=== PATIENT | female | born 1970 | race Caucasian/White ===

== ENCOUNTER → 2018-03-06 08:50 | Outpatient (CLI) | payer OTHER, SELFPAY ==
[2018-03-06 09:37] LABS: Add Manual Diff / Slide Review NO; Basophils Percent Auto 0.6 % (0-2); Eosinophils Percent Auto 3.6 % (2-4); Hematocrit 41.3 % (36-46); Hemoglobin 14.4 g/dL (12.0-16.0); Lymphocytes Percent Auto 30.2 % (25-40); Mean Corpuscular HGB Conc 34.9 % (30-36); Mean Corpuscular Hemoglobin 33.9 PG (26-34); Mean Corpuscular Volume 96.9 fL (80-100); Monocytes Percent Auto 9.3 % (3-14); Neutrophils Absolute Auto 3000 /uL (3000-5900); Neutrophils Percent Auto 56.3 % (50-75); Platelet Count 198 X10^3/uL (150-400); Red Blood Cell Count 4.26 X10^6/uL (4.0-5.2); Red Cell Distribution Width 12.1 % (11.6-14.8); White Blood Cell Count 5.3 X10^3/uL (4.5-11.0)
[2018-03-06 10:07] LABS: Alanine Aminotransferase 358 IU/L (9-52); Albumin 4.6 g/dL (3.5-5.0); Albumin Globulin Ratio 1.5 (1.0-2.8); Alkaline Phosphatase 83 U/L (38-126); Aspartate Aminotransferase 343 IU/L (14-36); Calcium 9.6 mg/dL (8.4-10.2); Cholesterol 259 mg/dL (140-199); Estimated Glomerular Filt Rate > 60.0 mL/min (>60); Glucose 89 mg/dL (70-100); HDL Cholesterol 76 mg/dL (40-60); HEMOLYSIS < 15 (0-50); LDL Cholesterol Calculated 167 mg/dL (<100); Potassium 4.6 mmol/L (3.4-5.1); Sodium 141 mmol/L (137-145); Total Protein 7.6 g/dL (6.3-8.2); Triglycerides 79 mg/dL (35-150)
[2018-03-06 10:17] LABS: Free T3, Triiodothyronine Free 3.75 pg/mL (2.77-5.27); Free T4, Direct Thyroxine 1.12 ng/dL (0.78-2.19)
[2018-03-06 10:31] LABS: Thyroid Stimulating Hormone 1.24 uIU/mL (0.47-4.68)
[2018-03-10 13:57] LABS: Thyroid Peroxidase Antibodies 1 IU/mL (< 9)
== END ==
PROVIDERS: PCP Internal Medicine
DX: Z13.228 Encounter for screening for other metabolic disorders (principal); Z13.220 Encounter for screening for lipoid disorders; Z13.0 Encounter for screening for diseases of the blood and blood-forming organs and certain disorders involving the immune mechanism; Z13.29 Encounter for screening for other suspected endocrine disorder; E03.9 Hypothyroidism, unspecified
CPT/HCPCS: 36415; 80053; 80061; 84439; 84443; 84481; 85025; 86376

== ENCOUNTER → 2019-01-28 14:54 | Outpatient (CLI) | payer OTHER, SELFPAY ==
[2019-01-28 15:51] LABS: Influenza A and B by PCR Rapid Negative (Negative)
== END ==
PROVIDERS: PCP Internal Medicine; Visit Provider Physician Assistant
DX: R68.89 Other general symptoms and signs (principal)
CPT/HCPCS: 87400

== ENCOUNTER → 2019-03-11 08:46 | Outpatient (CLI) | payer OTHER, SELFPAY ==
[2019-03-11 10:08] LABS: Add Manual Diff / Slide Review NO; Basophils Absolute Auto 0 /uL (0-100); Basophils Percent Auto 0.3 % (0-2); Eosinophils Absolute Auto 400 /uL (0-450); Eosinophils Percent Auto 6.3 % (2-4); Hematocrit 43.3 % (36-46); Hemoglobin 14.8 g/dL (12.0-16.0); Lymphocytes Absolute Auto 2400 /uL (1100-4500); Lymphocytes Percent Auto 37.1 % (25-40); Mean Corpuscular HGB Conc 34.1 % (30-36); Mean Corpuscular Hemoglobin 32.8 PG (26-34); Mean Corpuscular Volume 96.4 fL (80-100); Monocytes Absolute Auto 400 /uL (0-900); Monocytes Percent Auto 6.5 % (3-14); Neutrophils Absolute Auto 3300 /uL (1500-7000); Neutrophils Percent Auto 49.8 % (50-75); Platelet Count 259 X10^3/uL (150-400); Red Cell Distribution Width 12.3 % (11.6-14.8); White Blood Cell Count 6.6 X10^3/uL (4.5-11.0)
[2019-03-11 10:43] LABS: Alanine Aminotransferase 47 IU/L (9-52); Albumin 4.3 g/dL (3.5-5.0); Albumin Globulin Ratio 1.4 (1.0-2.8); Alkaline Phosphatase 82 U/L (38-126); Aspartate Aminotransferase 49 IU/L (14-36); Bilirubin Total 0.7 mg/dL (0.2-1.3); Blood Urea Nitrogen 16 mg/dL (7-17); Calcium 9.7 mg/dL (8.4-10.2); Carbon Dioxide 30 mmol/L (22-32); Chloride 102 mmol/L (98-107); Cholesterol 322 mg/dL (140-199); Estimated Glomerular Filt Rate > 60.0 mL/min (>60); Glucose 90 mg/dL (70-100); HDL Cholesterol 58 mg/dL (40-60); HEMOLYSIS < 15 (0-50); LDL Cholesterol Calculated 227 mg/dL (<100); Potassium 4.7 mmol/L (3.4-5.1); Sodium 139 mmol/L (137-145); Total Protein 7.3 g/dL (6.3-8.2); Triglycerides 187 mg/dL (35-150)
[2019-03-11 10:58] LABS: Free T3, Triiodothyronine Free 3.56 pg/mL (2.77-5.27); Free T4, Direct Thyroxine 0.83 ng/dL (0.78-2.19)
[2019-03-11 11:12] LABS: Thyroid Stimulating Hormone 3.19 uIU/mL (0.47-4.68)
[2019-03-13 15:27] LABS: Thyroid Peroxidase Antibodies 1 IU/mL (< 9)
== END ==
PROVIDERS: PCP Family Medicine
DX: E03.9 Hypothyroidism, unspecified (principal); Z13.228 Encounter for screening for other metabolic disorders; Z13.220 Encounter for screening for lipoid disorders; Z13.0 Encounter for screening for diseases of the blood and blood-forming organs and certain disorders involving the immune mechanism
CPT/HCPCS: 36415; 80053; 80061; 84439; 84443; 84481; 85025; 86376

== ENCOUNTER → 2019-05-24 10:57 | Outpatient (CLI) | payer OTHER, SELFPAY ==
--- NOTE | 2019-05-24 10:58 | DI.MG.S_ITS ---
BILATERAL DIGITAL SCREENING MAMMOGRAM 3D/2D WITH CAD: 05/24/2019 CLINICAL: Routine screening. Comparison is made to exams dated: 05/12/2018 mammogram and 05/09/2017 mammogram - [facility]. There are scattered fibroglandular elements in both breasts. Current study was also evaluated with a Computer Aided Detection (CAD) system. There are benign post operative findings in both breasts. There is a mole marker on the right breast. No significant masses, calcifications, or other findings are seen in either breast. There has been no significant interval change. IMPRESSION: There is no mammographic evidence of malignancy. A 1 year screening mammogram is recommended. This exam was interpreted at Station ID: [id number]. NOTE: For mammograms, a report in lay terms will be sent to the patient. Approximately 15% of breast malignancies will not be visualized mammographically. In the management of a palpable breast mass, a negative mammogram must not discourage biopsy of a clinically suspicious lesion. Electronically Signed By: Chuck deal/polly:05/26/2019 17:10:51 copy to: Lynn Mitchell letter sent: Normal Exam ACR BI-RADS Category 2: Benign Finding(s) 3342F
== END ==
PROVIDERS: PCP Family Medicine; Visit Provider Nurse Practitioner Family
DX: Z12.31 Encounter for screening mammogram for malignant neoplasm of breast (principal)
CPT/HCPCS: 77063; 77067

== ENCOUNTER → 2019-09-22 10:29 | Outpatient (CLI) | payer OTHER, SELFPAY ==
[2019-09-22 11:41] LABS: Alanine Aminotransferase 119 IU/L (<35); Albumin 4.5 g/dL (3.5-5.0); Albumin Globulin Ratio 1.7 (1.0-2.8); Alkaline Phosphatase 104 U/L (38-126); Aspartate Aminotransferase 169 IU/L (14-36); Bilirubin Total 0.9 mg/dL (0.2-1.3); Blood Urea Nitrogen 16 mg/dL (7-17); Calcium 9.6 mg/dL (8.4-10.2); Carbon Dioxide 28 mmol/L (22-32); Chloride 103 mmol/L (98-107); Cholesterol 201 mg/dL (140-199); Estimated Glomerular Filt Rate > 60.0 mL/min (>60); Globulin 2.7 g/dL (1.7-4.1); Glucose 93 mg/dL (70-100); HDL Cholesterol 69 mg/dL (40-60); HEMOLYSIS < 15 (0-50); LDL Cholesterol Calculated 112 mg/dL (<100); Potassium 4.8 mmol/L (3.4-5.1); Sodium 139 mmol/L (137-145); Total Protein 7.2 g/dL (6.3-8.2); Triglycerides 102 mg/dL (35-150)
[2019-09-22 12:09] LABS: Thyroid Stimulating Hormone 2.68 uIU/mL (0.47-4.68)
== END ==
PROVIDERS: PCP Nurse Practitioner Family; Visit Provider Nurse Practitioner Family
DX: E03.9 Hypothyroidism, unspecified (principal); R74.8 Abnormal levels of other serum enzymes; E78.2 Mixed hyperlipidemia
CPT/HCPCS: 36415; 80053; 80061; 84443

== ENCOUNTER → 2019-12-01 12:10 | Outpatient (CLI) | payer OTHER, SELFPAY ==
[2019-12-01 13:29] LABS: Alanine Aminotransferase 127 IU/L (<35); Albumin 4.8 g/dL (3.5-5.0); Albumin Globulin Ratio 1.7 (1.0-2.8); Alkaline Phosphatase 116 U/L (38-126); Aspartate Aminotransferase 120 IU/L (14-36); Bilirubin Unconjugated 0.9 mg/dL (0.0-1.1); Globulin 2.8 g/dL (1.7-4.1); HEMOLYSIS < 15 (0-50); Total Protein 7.6 g/dL (6.3-8.2)
== END ==
PROVIDERS: PCP Nurse Practitioner Family; Referring Provider Nurse Practitioner Family; Visit Provider Nurse Practitioner Family
DX: R74.8 Abnormal levels of other serum enzymes (principal)
CPT/HCPCS: 36415; 80076

== ENCOUNTER → 2020-04-28 10:48 | Outpatient (CLI) | payer OTHER, SELFPAY ==
[2020-04-28 12:30] LABS: Hematocrit 40.7 % (36-46); Mean Corpuscular HGB Conc 34.4 % (30-36); Mean Corpuscular Hemoglobin 32.9 PG (26-34); Mean Corpuscular Volume 95.7 fL (80-100); Platelet Count 220 X10^3/uL (150-400); Red Blood Cell Count 4.25 X10^6/uL (4.0-5.2); Red Cell Distribution Width 12.3 % (11.6-14.8); White Blood Cell Count 4.9 X10^3/uL (4.5-11.0)
[2020-04-28 12:36] LABS: Creatinine Urine Random 172.8 mg/dL
[2020-04-28 12:39] LABS: Microalbumi Creatinin Ratio Ur 4.6 ug/mg CR (<30); Microalbumin Urine Random 0.8 mg/dL (0-1.6)
[2020-04-28 12:42] LABS: Alanine Aminotransferase 165 IU/L (<35); Albumin 4.4 g/dL (3.5-5.0); Albumin Globulin Ratio 1.7 (1.0-2.8); Alkaline Phosphatase 87 U/L (38-126); Aspartate Aminotransferase 142 IU/L (14-36); BUN Creatinine Ratio 15.9 (6-22); Bilirubin Total 0.8 mg/dL (0.2-1.3); Blood Urea Nitrogen 14 mg/dL (7-17); Calcium 10.1 mg/dL (8.4-10.2); Carbon Dioxide 30 mmol/L (22-32); Chloride 101 mmol/L (98-107); Cholesterol 273 mg/dL (140-199); Estimated Glomerular Filt Rate > 60.0 mL/min (>60); Globulin 2.6 g/dL (1.7-4.1); Glucose 86 mg/dL (70-100); HDL Cholesterol 68 mg/dL (40-60); HEMOLYSIS < 15 (0-50); LDL Cholesterol Calculated 180 mg/dL (<100); Potassium 5.1 mmol/L (3.4-5.1); Sodium 137 mmol/L (137-145); Triglycerides 126 mg/dL (35-150)
[2020-04-28 14:49] LABS: Free T4, Direct Thyroxine 1.05 ng/dL (0.78-2.19)
[2020-04-28 15:03] LABS: Thyroid Stimulating Hormone 1.72 uIU/mL (0.47-4.68)
== END ==
PROVIDERS: PCP Nurse Practitioner Family; Referring Provider Nurse Practitioner Family; Visit Provider Nurse Practitioner Family
DX: E03.9 Hypothyroidism, unspecified (principal); I10 Essential (primary) hypertension; K76.0 Fatty (change of) liver, not elsewhere classified; E78.2 Mixed hyperlipidemia
CPT/HCPCS: 36415; 80053; 80061; 82043; 82570; 84439; 84443; 85027

== ENCOUNTER → 2020-11-04 09:24 | Outpatient (CLI) | payer OTHER, SELFPAY ==
[2020-11-04 10:23] LABS: Hematocrit 41.9 % (36-46); Hemoglobin 14.5 g/dL (12.0-16.0); Mean Corpuscular HGB Conc 34.7 % (30-36); Mean Corpuscular Hemoglobin 34.1 PG (26-34); Mean Corpuscular Volume 98.1 fL (80-100); Platelet Count 207 X10^3/uL (150-400); Red Blood Cell Count 4.27 X10^6/uL (4.0-5.2); Red Cell Distribution Width 12.3 % (11.6-14.8); White Blood Cell Count 6.2 X10^3/uL (4.5-11.0)
[2020-11-04 11:18] LABS: Alanine Aminotransferase 381 IU/L (<35); Albumin 4.3 g/dL (3.5-5.0); Albumin Globulin Ratio 1.5 (1.0-2.8); Alkaline Phosphatase 90 U/L (38-126); Aspartate Aminotransferase 413 IU/L (14-36); BUN Creatinine Ratio 18.4 (6-22); Bilirubin Total 0.5 mg/dL (0.2-1.3); Blood Urea Nitrogen 14 mg/dL (7-17); Calcium 9.4 mg/dL (8.4-10.2); Carbon Dioxide 27 mmol/L (22-32); Chloride 104 mmol/L (98-107); Cholesterol 246 mg/dL (140-199); Estimated Glomerular Filt Rate > 60.0 mL/min (>60); Globulin 2.9 g/dL (1.7-4.1); Glucose 93 mg/dL (70-100); HDL Cholesterol 66 mg/dL (40-60); HEMOLYSIS < 15 (0-50); LDL Cholesterol Calculated 160 mg/dL (<100); Potassium 4.4 mmol/L (3.4-5.1); Sodium 138 mmol/L (137-145); Total Protein 7.2 g/dL (6.3-8.2); Triglycerides 102 mg/dL (35-150)
[2020-11-04 11:31] LABS: Free T4, Direct Thyroxine 1.23 ng/dL (0.78-2.19)
[2020-11-04 11:45] LABS: Thyroid Stimulating Hormone 1.63 uIU/mL (0.47-4.68)
== END ==
PROVIDERS: PCP Nurse Practitioner Family; Referring Provider Nurse Practitioner Family; Visit Provider Nurse Practitioner Family
DX: Z00.00 Encounter for general adult medical examination without abnormal findings (principal); E03.9 Hypothyroidism, unspecified; E78.2 Mixed hyperlipidemia; F10.10 Alcohol abuse, uncomplicated; I10 Essential (primary) hypertension; K76.0 Fatty (change of) liver, not elsewhere classified; Z13.6 Encounter for screening for cardiovascular disorders
CPT/HCPCS: 36415; 80053; 80061; 84439; 84443; 85027

== ENCOUNTER → 2020-11-17 11:48 | Outpatient (CLI) | payer OTHER, SELFPAY ==
[2020-11-17 13:13] LABS: INR 1.1 (0.9-1.3)
[2020-11-19 23:39] LABS: HBsAg Screen Negative (Negative); Hepatitis A Antibody IgM Negative (Negative); Hepatitis B Core Antibody IgM Negative (Negative); Hepatitis C Antibody <0.1 s/co ratio (0.0-0.9)
[2020-11-20 14:36] LABS: Vitamin B1 140.5 nmol/L (66.5-200.0)
[2020-11-21 00:06] LABS: ALT (SGPT) 418 IU/L (0-40); Alpha 2-Macroglobulins, QN 184 mg/dL (110-276); Apolipoprotein A-1 173 mg/dL (116-209); Bilirubin,Total 0.4 mg/dL (0.0-1.2); Fibrosis Score 0.15 (0.00-0.21); GGT 185 IU/L (0-60); Haptoglobin 219 mg/dL (42-296); Necroinflammat Act Grade A3-Severe activity (.); Necroinflammat Act Score 0.92 (0.00-0.17)
== END ==
PROVIDERS: PCP Nurse Practitioner Family; Referring Provider Nurse Practitioner Family; Visit Provider Nurse Practitioner Family
DX: K70.9 Alcoholic liver disease, unspecified (principal); F10.10 Alcohol abuse, uncomplicated; R74.8 Abnormal levels of other serum enzymes
CPT/HCPCS: 36415; 80074; 81596; 84425; 85610

== ENCOUNTER → 2020-11-23 16:43 | Outpatient (CLI) | payer OTHER, SELFPAY ==
[2020-11-23 19:11] LABS: Hematocrit 41.6 % (36-46); Hemoglobin 14.4 g/dL (12.0-16.0); Mean Corpuscular HGB Conc 34.6 % (30-36); Mean Corpuscular Volume 98.2 fL (80-100); Platelet Count 228 X10^3/uL (150-400); Red Blood Cell Count 4.24 X10^6/uL (4.0-5.2); Red Cell Distribution Width 11.9 % (11.6-14.8); White Blood Cell Count 8.6 X10^3/uL (4.5-11.0)
[2020-11-23 19:28] LABS: INR 1.2 (0.9-1.3); Prothrombin Time 13.8 SECONDS (10.1-12.7)
[2020-11-23 19:37] LABS: Alanine Aminotransferase 363 IU/L (<35); Albumin 4.4 g/dL (3.5-5.0); Albumin Globulin Ratio 1.4 (1.0-2.8); Alkaline Phosphatase 89 U/L (38-126); Aspartate Aminotransferase 276 IU/L (14-36); BUN Creatinine Ratio 20.7 (6-22); Bilirubin Total 0.6 mg/dL (0.2-1.3); Bilirubin Unconjugated 0.5 mg/dL (0.0-1.1); Blood Urea Nitrogen 18 mg/dL (7-17); Calcium 9.9 mg/dL (8.4-10.2); Carbon Dioxide 31 mmol/L (22-32); Chloride 102 mmol/L (98-107); Estimated Glomerular Filt Rate > 60.0 mL/min (>60); Globulin 3.2 g/dL (1.7-4.1); Glucose 78 mg/dL (70-100); HEMOLYSIS < 15 (0-50); Potassium 4.1 mmol/L (3.4-5.1); Sodium 138 mmol/L (137-145); Total Protein 7.6 g/dL (6.3-8.2)
== END ==
PROVIDERS: PCP Nurse Practitioner Family; Referring Provider Nurse Practitioner Family; Visit Provider Nurse Practitioner Family
DX: K70.9 Alcoholic liver disease, unspecified (principal); R74.8 Abnormal levels of other serum enzymes
CPT/HCPCS: 36415; 80053; 80076; 85027; 85610

== ENCOUNTER → 2021-01-15 08:30 | Outpatient (CLI) | payer OTHER, SELFPAY ==
[2021-01-15 09:51] LABS: Hematocrit 41.4 % (36-46); Hemoglobin 14.2 g/dL (12.0-16.0); Mean Corpuscular HGB Conc 34.3 % (30-36); Mean Corpuscular Volume 96.3 fL (80-100); Platelet Count 195 X10^3/uL (150-400); Red Cell Distribution Width 11.9 % (11.6-14.8); White Blood Cell Count 4.8 X10^3/uL (4.5-11.0)
[2021-01-15 09:57] LABS: Alanine Aminotransferase 225 IU/L (<35); Albumin 4.3 g/dL (3.5-5.0); Albumin Globulin Ratio 1.5 (1.0-2.8); Alkaline Phosphatase 78 U/L (38-126); Aspartate Aminotransferase 153 IU/L (14-36); BUN Creatinine Ratio 14.5 (6-22); Bilirubin Total 0.6 mg/dL (0.2-1.3); Blood Urea Nitrogen 11 mg/dL (7-17); Calcium 9.6 mg/dL (8.4-10.2); Carbon Dioxide 28 mmol/L (22-32); Chloride 104 mmol/L (98-107); Estimated Glomerular Filt Rate > 60.0 mL/min (>60); Globulin 2.9 g/dL (1.7-4.1); Glucose 93 mg/dL (70-100); HEMOLYSIS < 15 (0-50); Sodium 139 mmol/L (137-145); Total Protein 7.2 g/dL (6.3-8.2)
== END ==
PROVIDERS: PCP Nurse Practitioner Family; Referring Provider Nurse Practitioner Family; Visit Provider Nurse Practitioner Family
DX: K70.9 Alcoholic liver disease, unspecified (principal); R74.8 Abnormal levels of other serum enzymes
CPT/HCPCS: 36415; 80053; 85027

== ENCOUNTER → 2021-02-02 12:15 | Outpatient (CLI) | payer OTHER, SELFPAY ==
--- NOTE | 2021-02-02 12:18 | DI.RAD.S_ITS ---
PROCEDURE: XR LUMBAR SPINE 2-3V INDICATIONS: chronic lumbar pain TECHNIQUE: 3 views of the lumbar spine were acquired. COMPARISON: None. FINDINGS: Bones: 5 [id number] vertebrae are present. There is mild diffuse leftward curvature of the lower lumbar spine. Multilevel disc space narrowing and endplate osteophyte formation. Facet hypertrophy throughout the mid and lower lumbar spine. No vertebral body compression fractures. No suspicious bony lesions. Soft tissues: Overlying bowel gas pattern is normal. No suspicious soft tissue calcifications. IMPRESSION: Multilevel degenerative disc and facet disease. No acute fracture. No osseous lesion. If symptoms and/or clinical suspicion for pathology persist, further assessment with repeat, or advanced imaging (e.g., CT, MRI, or bone scan) may be helpful for further assessment. Dictated by: Pari De La Vega M.D. on 02/02/2021 at 16:53 Approved by: Pari De La Vega M.D. on 02/02/2021 at 16:53
[2021-02-02 13:04] LABS: Hematocrit 41.5 % (36-46); Hemoglobin 14.3 g/dL (12.0-16.0); Mean Corpuscular HGB Conc 34.5 % (30-36); Mean Corpuscular Hemoglobin 32.9 PG (26-34); Mean Corpuscular Volume 95.4 fL (80-100); Platelet Count 226 X10^3/uL (150-400); Red Blood Cell Count 4.34 X10^6/uL (4.0-5.2); Red Cell Distribution Width 11.7 % (11.6-14.8); White Blood Cell Count 6.3 X10^3/uL (4.5-11.0)
[2021-02-02 13:23] LABS: Alanine Aminotransferase 105 IU/L (<35); Albumin 4.4 g/dL (3.5-5.0); Albumin Globulin Ratio 1.4 (1.0-2.8); Alkaline Phosphatase 80 U/L (38-126); Aspartate Aminotransferase 81 IU/L (14-36); BUN Creatinine Ratio 12.3 (6-22); Bilirubin Total 0.6 mg/dL (0.2-1.3); Blood Urea Nitrogen 10 mg/dL (7-17); Calcium 9.9 mg/dL (8.4-10.2); Carbon Dioxide 30 mmol/L (22-32); Chloride 103 mmol/L (98-107); Estimated Glomerular Filt Rate > 60.0 mL/min (>60); Globulin 3.1 g/dL (1.7-4.1); Glucose 73 mg/dL (70-100); HEMOLYSIS < 15 (0-50); Potassium 4.2 mmol/L (3.4-5.1); Sodium 141 mmol/L (137-145); Total Protein 7.5 g/dL (6.3-8.2)
== END ==
PROVIDERS: PCP Nurse Practitioner Family; Referring Provider Nurse Practitioner Family; Visit Provider Nurse Practitioner Family
DX: M54.5 Low back pain (principal); M51.36 Other intervertebral disc degeneration, lumbar region; K70.9 Alcoholic liver disease, unspecified; R74.8 Abnormal levels of other serum enzymes; G89.29 Other chronic pain
CPT/HCPCS: 36415; 72100; 80053; 85027

== ENCOUNTER → 2021-02-09 17:57 | Outpatient (CLI) | payer OTHER, SELFPAY ==
--- NOTE | 2021-02-09 17:58 | DI.MRI.S_ITS ---
PROCEDURE: MR LUMBAR SPINE WO CON INDICATIONS: Lumbar facet arthropathy, scoliosis TECHNIQUE: Noncontrast sagittal T1 spin echo and T2 fast echo, sagittal STIR, axial T1 and T2 fast spin echo through the lumbar spine. In cases with scoliosis, additional coronal T2 fast spin echo may be performed. COMPARISON: None. FINDINGS: Image quality: Excellent. Alignment and Curvature: There is normal bony alignment. Mild convex left lumbar spine scoliosis. Bone Marrow: Marrow is of normal overall signal. No acute vertebral body compression fractures. Spinal Cord: Conus medullaris terminates at the L1 level. Visualized cord demonstrates normal signal and size. Paraspinous Soft Tissues: No paravertebral masses. T12-L1: Normal appearance. L1-L2: Normal appearance. L2-L3: Loss of disc signal. Mild bilateral facet hypertrophy. No central stenosis. No neural foraminal narrowing. No neural compression. L3-L4: Loss of disc signal. Mild diffuse disc bulge. Mild bilateral facet hypertrophy. No central stenosis. No neural foraminal narrowing. No neural compression. L4-L5: Loss of disc signal. Mild, diffuse disc bulge. Mild bilateral facet hypertrophy. Mild narrowing of the central canal. No neural foraminal narrowing. No neural compression. L5-S1: Loss of disc signal. Mild, diffuse disc bulge. Mild bilateral facet hypertrophy. No central stenosis. Moderate to severe bilateral neural foraminal narrowing with slight compression of the exiting L5 nerve roots. IMPRESSION: 1. Multilevel degenerative disc disease. 2. Multilevel facet arthropathy. 3. No severe central canal narrowing. 4. Moderate to severe bilateral L5-S1 neural foraminal narrowing with slight compression of the exiting bilateral L5 nerve roots. Please correlate with clinical data. 5. Mild convex left scoliosis. Dictated by: Rina Mercado MD, PhD on 02/12/2021 at 8:28 Approved by: Rina Mercado MD, PhD on 02/12/2021 at 8:32
== END ==
PROVIDERS: PCP Nurse Practitioner Family; Referring Provider Physical Medicine & Rehabilitation; Visit Provider Physical Medicine & Rehabilitation
DX: M47.816 Spondylosis without myelopathy or radiculopathy, lumbar region (principal); M51.36 Other intervertebral disc degeneration, lumbar region; M48.061 Spinal stenosis, lumbar region without neurogenic claudication; M48.07 Spinal stenosis, lumbosacral region; M41.86 Other forms of scoliosis, lumbar region
CPT/HCPCS: 72148

== ENCOUNTER → 2021-03-06 07:01 | Outpatient (CLI) | payer OTHER, SELFPAY ==
[2021-03-06 12:43] LABS: COVID19 -Nasal RAPID Negative (Negative)
== END ==
PROVIDERS: PCP Nurse Practitioner Family; Visit Provider Physical Medicine & Rehabilitation
DX: Z20.822 Contact with and (suspected) exposure to COVID-19 (principal)
CPT/HCPCS: 87635; C9803

== ENCOUNTER 2021-03-08 13:43 | Outpatient (CLI) | payer OTHER, SELFPAY ==
[2021-03-08] VITALS (8 sets, daily range): BP systolic 103–133; BP diastolic 64–77; PULSE 49–69; RESP 14–20; TEMP 36.4; O2SAT 95–100
--- NOTE | 2021-03-08 13:46 | DI.RAD.S_ITS ---
PROCEDURE: PAIN L/SI FACET INJ/BLK 1STL INDICATIONS: Right L4-5 L5-S1 facet joint injection COMPARISON: None. FINDINGS: Fluoroscopic spot filming was performed to verify placement of spinal needles at the L4-L5, L5-S1 level(s), as labeled on the films. Appropriate location(s) of the needle tip(s) was confirmed by injection of iodinated contrast. Dictated by: Roman Sexton M.D. on 03/08/2021 at 15:29 Approved by: Roman Sexton M.D. on 03/08/2021 at 15:30
[2021-03-08] MEDS: fentaNYL 100 MCG/2 ML INJ 50 MCG IV (14:30)
[2021-03-08] MEDS: MIDAZOLAM 5 MG/5 ML VIAL IV (14:30)
[2021-03-08] MEDS: IOPAMIDOL 15 ML VIAL 3 ML INJ (14:31)
[2021-03-08] MEDS: BETAMETHASONE 30 MG/5 ML MDV 12 MG INJ (14:32)
[2021-03-08] MEDS: BUPIVACAINE 0.5% (PF) VIAL 5 ML INJ (14:32)
--- NOTE | 2021-03-08 14:43 | P.PCN_ITS ---
Date/Time/Diagnoses Date of procedure: 03/08/21 Time of procedure: 14:43 Pre-procedure diagnosis: 1. FACET ARTHROPATHY, 2. AXIAL LBP, 3. MULTILEVEL DDD Post-procedure diagnosis: same Procedure Notes Procedure: 1. FLUOROSCOPICALLY GUIDED CONTRAST CONTROLLED FACET JOINT INJECTIONS RIGHT L4/5, L5/S1 Indications: Jose is referred by EDIL Fritz for treatment of Axial LBP Physician: Kale Barnes Total Fluoroscopy time (seconds): 9 Total sedation minutes: 9 Complications: none Procedure in detail & Post-procedure care: FINDINGS Multilevel Facet Arthropathy with Clinically significant axial LBP DESCRIPTION OF PROCEDURE Fluoroscopically guided, contrast-controlled right L4/5, L5/S1 facet joint injections. Following review of allergy and review of potential side effects and complications, including, but not necessarily limited to, infection, allergic reaction, local tissue breakdown, stroke, temporary or permanent nerve injury, paralysis, and possible , the patient indicated that the patient understood and agreed to proceed. An informed consent document was signed by the patient, witnessed by a nurse, and placed in the patient's chart. Additionally, other treatment options including medications, modalities, and physical therapy were reviewed with the patient. After review of previous anaesthesic history and IV conscious sedation the patient was deemed safe to proceed with today?s procedure with IV conscious sedation as ASA class II designation. Safety time-out was performed to confirm patient ID, procedure to be performed and site of procedure. IV sedation was accomplished with a combination of 2mg of Versed and 50mcg of Fentanyl was administered by the RN after DO order, titrated to patient comfort during the course of the procedure while the patient remained responsive to all verbal commands. In the prone position, following sterile prep and drape of the lumbar region, the posterior aspect of the right L4/5, L5/S1 facet joints were identified fluoroscopically. The skin was anesthetized via a 25-gauge 1.5-inch needle with 1% lidocaine solution into the corresponding facet joints. At this point, a 22- gauge 3.5-inch spinal needle was atraumatically introduced and advanced under fluoroscopic guidance into the corresponding facet joints. Following negative aspiration, injections of approximately 0.2-cc of Isovue 200 confirmed interarticular placement without vascular uptake. Radiological data, including multiple fluoroscopic views of the lumbosacral spine, reveal a spinal needle at the right L4/5, L5/S1 facet joints. Subsequent views show flow of contrast material both superiorly and inferiorly within the joint space without vascular or intrathecal uptake. At this point, a total of 0.5cc including a mixture of 0.25cc Marcaine and 0.25cc betamethasone was injected without complication into each of the corresponding facet joints. The procedure tolerated the procedure well without signs or symptoms of co mplications prior to transfer to the recovery area continued monitoring without incident. The patient was then transferred to the recovery area where they were observed for an appropriate period of time after the injection. The patient reported a VAS score of 7 prior to the procedure and a post-procedure VAS of 0. POST OP INSTRUCTIONS The patient was provided a Pain Log to continue to record their response to the target-specific procedure prior to follow-up visit with their referring physician. Additionally, specific post-injection care instructions and a contact number to our office were provided if concerns arise regarding possible complications associated with the procedure are suspected.
== END 2021-03-08 15:01 | disposition home or self-care (01) ==
LOC: RAD 13:46
PROVIDERS: PCP Nurse Practitioner Family; Referring Provider Physical Medicine & Rehabilitation; Visit Provider Physical Medicine & Rehabilitation
DX: M47.816 Spondylosis without myelopathy or radiculopathy, lumbar region (principal); M47.817 Spondylosis without myelopathy or radiculopathy, lumbosacral region; M51.36 Other intervertebral disc degeneration, lumbar region; M51.37 Other intervertebral disc degeneration, lumbosacral region; M54.5 Low back pain
CPT/HCPCS: 64493; 64494; J0702; J2250; J3010

== ENCOUNTER → 2021-04-27 08:57 | Outpatient (CLI) | payer OTHER, SELFPAY ==
[2021-04-27 09:43] LABS: Hematocrit 42.5 % (36-46); Hemoglobin 14.6 g/dL (12.0-16.0); Mean Corpuscular HGB Conc 34.4 % (30-36); Mean Corpuscular Hemoglobin 32.5 PG (26-34); Mean Corpuscular Volume 94.4 fL (80-100); Platelet Count 213 X10^3/uL (150-400); Red Cell Distribution Width 12.6 % (11.6-14.8); White Blood Cell Count 5.4 X10^3/uL (4.5-11.0)
[2021-04-27 09:55] LABS: Alanine Aminotransferase 167 IU/L (<35); Albumin 4.3 g/dL (3.5-5.0); Albumin Globulin Ratio 1.4 (1.0-2.8); Alkaline Phosphatase 85 U/L (38-126); Aspartate Aminotransferase 130 IU/L (14-36); BUN Creatinine Ratio 17.5 (6-22); Bilirubin Total 0.8 mg/dL (0.2-1.3); Blood Urea Nitrogen 14 mg/dL (7-17); Calcium 9.8 mg/dL (8.4-10.2); Carbon Dioxide 31 mmol/L (22-32); Chloride 102 mmol/L (98-107); Estimated Glomerular Filt Rate > 60.0 mL/min (>60); Glucose 103 mg/dL (70-100); HEMOLYSIS < 15 (0-50); Potassium 4.8 mmol/L (3.4-5.1); Sodium 138 mmol/L (137-145); Total Protein 7.3 g/dL (6.3-8.2)
== END ==
PROVIDERS: PCP Nurse Practitioner Family; Referring Provider Nurse Practitioner Family; Visit Provider Nurse Practitioner Family
DX: K70.9 Alcoholic liver disease, unspecified (principal)
CPT/HCPCS: 36415; 80053; 85027

== ENCOUNTER → 2021-06-05 08:25 | Outpatient (CLI) | payer OTHER, SELFPAY ==
[2021-06-05 12:39] LABS: COVID19 -Nasal RAPID Negative (Negative)
== END ==
PROVIDERS: PCP Nurse Practitioner Family; Visit Provider Physical Medicine & Rehabilitation
DX: Z20.822 Contact with and (suspected) exposure to COVID-19 (principal)
CPT/HCPCS: 87635; C9803

== ENCOUNTER 2021-06-07 13:26 | Outpatient (CLI) | payer OTHER, SELFPAY ==
[2021-06-07] VITALS (8 sets, daily range): BP systolic 104–139; BP diastolic 57–79; PULSE 62–77; RESP 12–97; TEMP 36.7; O2SAT 96–100
--- NOTE | 2021-06-07 13:26 | DI.RAD.S_ITS ---
PROCEDURE: PAIN L/SI FACET INJ/BLK 1STL INDICATIONS: Right L4, L5 and S1 MBB COMPARISON: [facility], , PAIN L/SI FACET INJ/BLK 1STL, 03/08/2021, 14:31. FINDINGS: Fluoroscopic spot filming was performed to verify placement of spinal needles at the L4, L5, and S1 level(s), as labeled on the films. Appropriate location(s) of the needle tip(s) was confirmed by injection of iodinated contrast. IMPRESSION: Intraprocedural examination within normal limits. Dictated by: Bolivar Perera M.D. on 06/07/2021 at 14:12 Approved by: Bolivar Perera M.D. on 06/07/2021 at 14:12
[2021-06-07] MEDS: MIDAZOLAM 5 MG/5 ML VIAL IV (14:18)
[2021-06-07] MEDS: fentaNYL 100 MCG/2 ML INJ 50 MCG IV (14:18)
[2021-06-07] MEDS: IOPAMIDOL 15 ML VIAL 3 ML INJ (14:24)
[2021-06-07] MEDS: BUPIVACAINE 0.5% (PF) VIAL 5 ML INJ (14:24)
--- NOTE | 2021-06-07 14:31 | PM.PROC.IR.1 ---
Date/Time/Diagnoses Date of procedure: 06/07/21 Time of procedure: 14:31 Pre-procedure diagnosis: 1. FACET ARTHROPATHY Post-procedure diagnosis: same Procedure Notes Procedure: 1. Right L4, L5 and S1 MB BLOCKS Indications: Jose is referred by EDIL Fritz for treatment of Right Axial LBP. Physician: Kale Barnes Total Fluoroscopy time (seconds): 5 Total sedation minutes: 9 Complications: none Procedure in detail & Post-procedure care: DESCRIPTION OF PROCEDURE Fluoroscopically guided, contrast-controlled right L4, L5 and S1 medial branch blocks with 0.5cc of 0.5% Marcaine. Following review of allergy and review of potential side effects and complications, including, but not necessarily limited to, infection, allergic reaction, local tissue breakdown, nerve injury, paralysis, stroke and possible , the patient indicated that the patient understood and agreed to proceed. An informed consent document was signed by the patient, witnessed by a nurse, and placed in the patient's chart. After review of previous anaesthesic history and IV conscious sedation the patient was deemed safe to proceed with today?s procedure with IV conscious sedation as ASA class II designation. Safety time-out was performed to confirm patient ID, procedure to be performed and site of procedure. IV sedation was accomplished with a combination of 2mg of Versed and 50mcg of Fentanyl was administered by the RN after DO order, titrated to patient comfort during the course of the procedure while the patient remained responsive to all verbal commands In the prone position, following sterile prep and drape of the lumbar region, the right L4, L5 and S1 anatomical location of the medial branch of the dorsal ramus was identified fluoroscopically. Subsequently an anesthetic skin wheal using 1% lidocaine solution was initiated at each of the anatomical spots. Subsequently then a 22-gauge 3.5-inch spinal needle was atraumatically introduced and advanced under fluoroscopic guidance at each of the corresponding sites at the right L4, L5 and S1 MB. After negative aspiration, 0.2 cc of Isovue 200 was injected, confirming placement without vascular or intrathecal uptake. Subsequently then 0.5 cc of 0.5% Marcaine solution was injected at each of the corresponding sites at the right L4, L5 and S1 medial branch locations. The patient tolerated the procedure well without signs or symptoms of complications. The procedure tolerated the procedure well without signs or symptoms of complications prior to transfer to the recovery area continued monitoring without incident. Post-procedure, the patient was monitored initiating provocative activities to measure the amount of relief from block of the facetogenic pain. The patient reported a VAS of 7 prior to the procedure and a post-procedure VAS of 1. It has been a pleasure to assist in the diagnostic and therapeutic care of your patient. POST OP INSTRUCTIONS The patient was provided with a Pain Log to complete over the next several hours and subsequent days prior to the patient's follow up with the ordering physician. If the patient has personal protection specialist relief to the solution applied, then they may be a candidate for medial branch rhizotomy. The patient is aware, was provided, once again, with a Pain Log and will follow up with the referring physician for review and clinical correlation.
== END 2021-06-07 15:00 | disposition home or self-care (01) ==
LOC: RAD 13:26
PROVIDERS: PCP Nurse Practitioner Family; Referring Provider Physical Medicine & Rehabilitation; Visit Provider Physical Medicine & Rehabilitation
DX: M47.816 Spondylosis without myelopathy or radiculopathy, lumbar region (principal); M47.817 Spondylosis without myelopathy or radiculopathy, lumbosacral region; M54.5 Low back pain
CPT/HCPCS: 64493; 64494; 64495; J2250; J3010

== ENCOUNTER → 2021-06-09 09:34 | Outpatient (CLI) | payer OTHER, SELFPAY ==
--- NOTE | 2021-06-09 09:35 | DI.MG.S_ITS ---
BILATERAL DIGITAL SCREENING MAMMOGRAM 3D/2D WITH CAD: 06/09/2021 CLINICAL: Routine screening. Comparison is made to exams dated: 05/25/2020 mammogram - [facility], 05/24/2019 mammogram [facility], and 05/12/2018 mammogram - [facility]. There are scattered fibroglandular elements in both breasts. Current study was also evaluated with a Computer Aided Detection (CAD) system. There are benign post operative findings in both breasts. There is a mole marker on the right breast. No significant masses, calcifications, or other findings are seen in either breast. There has been no significant interval change. IMPRESSION: BENIGN There is no mammographic evidence of malignancy. A 1 year screening mammogram is recommended. This exam was interpreted at Station ID: [id number]. NOTE: For mammograms, a report in lay terms will be sent to the patient. Approximately 15% of breast malignancies will not be visualized mammographically. In the management of a palpable breast mass, a negative mammogram must not discourage biopsy of a clinically suspicious lesion. Electronically Signed By: Abhi evangelista/polly:06/10/2021 21:45:55 letter sent: Normal Exam ACR BI-RADS Category 2: Benign Finding(s) 3342F
== END ==
PROVIDERS: PCP Nurse Practitioner Family; Referring Provider Nurse Practitioner Family; Visit Provider Nurse Practitioner Family
DX: Z12.31 Encounter for screening mammogram for malignant neoplasm of breast (principal)
CPT/HCPCS: 77063; 77067

== ENCOUNTER → 2021-07-31 15:06 | Outpatient (CLI) | payer OTHER, SELFPAY ==
[2021-07-31 16:16] LABS: Hematocrit 43.4 % (36-46); Hemoglobin 15.1 g/dL (12.0-16.0); Mean Corpuscular HGB Conc 34.7 % (30-36); Mean Corpuscular Volume 98.2 fL (80-100); Platelet Count 228 X10^3/uL (150-400); Red Blood Cell Count 4.42 X10^6/uL (4.0-5.2); Red Cell Distribution Width 12.4 % (11.6-14.8)
[2021-07-31 16:47] LABS: Alanine Aminotransferase 215 IU/L (<35); Albumin 4.5 g/dL (3.5-5.0); Albumin Globulin Ratio 1.5 (1.0-2.8); Alkaline Phosphatase 83 U/L (38-126); Aspartate Aminotransferase 127 IU/L (14-36); BUN Creatinine Ratio 21.9 (6-22); Bilirubin Total 0.5 mg/dL (0.2-1.3); Blood Urea Nitrogen 16 mg/dL (7-17); Calcium 10.3 mg/dL (8.4-10.2); Carbon Dioxide 33 mmol/L (22-32); Chloride 100 mmol/L (98-107); Estimated Glomerular Filt Rate > 60.0 mL/min (>60); Globulin 3.1 g/dL (1.7-4.1); Glucose 104 mg/dL (70-100); HEMOLYSIS < 15 (0-50); Potassium 4.3 mmol/L (3.4-5.1); Sodium 140 mmol/L (137-145); Total Protein 7.6 g/dL (6.3-8.2)
[2021-07-31 17:07] LABS: Free T4, Direct Thyroxine 1.08 ng/dL (0.78-2.19)
[2021-07-31 17:21] LABS: Thyroid Stimulating Hormone 3.02 uIU/mL (0.47-4.68)
== END ==
PROVIDERS: PCP Nurse Practitioner Family; Referring Provider Nurse Practitioner Family; Visit Provider Nurse Practitioner Family
DX: Z00.00 Encounter for general adult medical examination without abnormal findings (principal); E03.9 Hypothyroidism, unspecified; F10.10 Alcohol abuse, uncomplicated; K70.9 Alcoholic liver disease, unspecified; K76.0 Fatty (change of) liver, not elsewhere classified; R74.8 Abnormal levels of other serum enzymes
CPT/HCPCS: 36415; 80053; 84439; 84443; 85027

== ENCOUNTER → 2021-08-02 11:30 | Outpatient (CLI) | payer OTHER, SELFPAY ==
--- NOTE | 2021-08-02 11:31 | DI.RAD.S_ITS ---
PROCEDURE: XR HIP W PEL IF DONE LT 2V INDICATIONS: hip pain TECHNIQUE: AP pelvis with lateral view(s) of the left hip(s). COMPARISON: None. FINDINGS: Bones: No fractures or dislocations. Pelvic ring appears intact. No suspicious bony lesions. Moderate left hip osteoarthritic degenerative changes. Soft tissues: The visualized bowel gas pattern is normal. No suspicious soft tissue calcifications. IMPRESSION: Moderate left hip osteoarthritis. Dictated by: Rina Mercado MD, PhD on 08/02/2021 at 16:47 Approved by: Rina Mercado MD, PhD on 08/02/2021 at 16:48
== END ==
PROVIDERS: PCP Nurse Practitioner Family; Referring Provider Nurse Practitioner Family; Visit Provider Nurse Practitioner Family
DX: M25.552 Pain in left hip (principal); M16.12 Unilateral primary osteoarthritis, left hip
CPT/HCPCS: 73502

== ENCOUNTER → 2021-11-02 11:50 | Outpatient (CLI) | payer OTHER, SELFPAY ==
[2021-11-02 12:37] LABS: Hematocrit 41.2 % (36-46); Hemoglobin 14.3 g/dL (12.0-16.0); Mean Corpuscular HGB Conc 34.8 % (30-36); Mean Corpuscular Hemoglobin 34.1 PG (26-34); Mean Corpuscular Volume 97.9 fL (80-100); Platelet Count 243 X10^3/uL (150-400); Red Blood Cell Count 4.21 X10^6/uL (4.0-5.2); Red Cell Distribution Width 12.4 % (11.6-14.8); White Blood Cell Count 6.6 X10^3/uL (4.5-11.0)
[2021-11-02 13:30] LABS: Alanine Aminotransferase 57 IU/L (<35); Albumin 4.3 g/dL (3.5-5.0); Albumin Globulin Ratio 1.8 (1.0-2.8); Alkaline Phosphatase 63 U/L (38-126); Aspartate Aminotransferase 48 IU/L (14-36); BUN Creatinine Ratio 12.8 (6-22); Bilirubin Total 0.7 mg/dL (0.2-1.3); Blood Urea Nitrogen 10 mg/dL (7-17); Calcium 9.8 mg/dL (8.4-10.2); Carbon Dioxide 29 mmol/L (22-32); Chloride 104 mmol/L (98-107); Cholesterol 202 mg/dL (140-199); Estimated Glomerular Filt Rate > 60.0 mL/min (>60); Globulin 2.4 g/dL (1.7-4.1); Glucose 90 mg/dL (70-100); HDL Cholesterol 71 mg/dL (40-60); HEMOLYSIS < 15 (0-50); LDL Cholesterol Calculated 116 mg/dL (<100); Potassium 4.5 mmol/L (3.4-5.1); Sodium 137 mmol/L (137-145); Total Protein 6.7 g/dL (6.3-8.2); Triglycerides 73 mg/dL (35-150)
== END ==
PROVIDERS: PCP Nurse Practitioner Family; Referring Provider Nurse Practitioner Family; Visit Provider Nurse Practitioner Family
DX: E03.9 Hypothyroidism, unspecified (principal); E78.2 Mixed hyperlipidemia; K70.9 Alcoholic liver disease, unspecified; Z13.6 Encounter for screening for cardiovascular disorders; Z00.00 Encounter for general adult medical examination without abnormal findings
CPT/HCPCS: 36415; 80053; 80061; 85027

== ENCOUNTER → 2021-11-14 10:33 | Outpatient (CLI) | payer OTHER, SELFPAY ==
[2021-11-14 14:02] LABS: COVID19 -Nasal RAPID POSITIVE (Negative)
== END ==
PROVIDERS: PCP Nurse Practitioner Family; Referring Provider Physician Assistant; Visit Provider Physician Assistant
DX: U07.1 COVID-19 (principal)
CPT/HCPCS: 87635

== ENCOUNTER → 2022-01-09 09:25 | Outpatient (CLI) | payer OTHER, SELFPAY ==
--- NOTE | 2022-01-09 09:27 | DI.RAD.S_ITS ---
PROCEDURE: XR CHEST 2V INDICATIONS: weight loss, former smoker TECHNIQUE: 2 views of the chest were acquired. [facility], [facility], CHEST 2VW, 02/05/2011, 9:56. FINDINGS: Surgical changes and devices: None. Lungs and pleura: Lungs are clear. No pleural effusions or pneumothorax. Mediastinum: Mediastinal contours are normal. Heart size is normal. Bones and chest wall: No suspicious bony abnormalities. Soft tissues appear unremarkable. IMPRESSION: No acute pulmonary process. Dictated by: Ericka Nam M.D. on 01/09/2022 at 15:07 Approved by: Ericka Nam M.D. on 01/09/2022 at 15:08
[2022-01-09 10:10] LABS: Hematocrit 41.5 % (36-46); Hemoglobin 14.6 g/dL (12.0-16.0); Mean Corpuscular HGB Conc 35.2 % (30-36); Mean Corpuscular Hemoglobin 33.8 PG (26-34); Mean Corpuscular Volume 95.8 fL (80-100); Platelet Count 254 X10^3/uL (150-400); Red Blood Cell Count 4.33 X10^6/uL (4.0-5.2); White Blood Cell Count 6.9 X10^3/uL (4.5-11.0)
[2022-01-09 10:26] LABS: Alanine Aminotransferase 30 IU/L (<35); Albumin 4.5 g/dL (3.5-5.0); Albumin Globulin Ratio 1.5 (1.0-2.8); Alkaline Phosphatase 68 U/L (38-126); Aspartate Aminotransferase 36 IU/L (14-36); BUN Creatinine Ratio 20.6 (6-22); Bilirubin Total 0.7 mg/dL (0.2-1.3); Blood Urea Nitrogen 14 mg/dL (7-17); Calcium 9.8 mg/dL (8.4-10.2); Carbon Dioxide 30 mmol/L (22-32); Chloride 104 mmol/L (98-107); Estimated Glomerular Filt Rate > 60.0 mL/min (>60); Glucose 93 mg/dL (70-100); HEMOLYSIS < 15 (0-50); Potassium 4.9 mmol/L (3.4-5.1); Sodium 138 mmol/L (137-145); Total Protein 7.5 g/dL (6.3-8.2)
[2022-01-09 10:43] LABS: Free T4, Direct Thyroxine 1.13 ng/dL (0.78-2.19)
[2022-01-09 10:57] LABS: Thyroid Stimulating Hormone 1.18 uIU/mL (0.47-4.68)
== END ==
PROVIDERS: PCP Nurse Practitioner Family; Referring Provider Nurse Practitioner Family; Visit Provider Nurse Practitioner Family
DX: R63.4 Abnormal weight loss (principal); Z87.891 Personal history of nicotine dependence
CPT/HCPCS: 36415; 71046; 80053; 84439; 84443; 85027

== ENCOUNTER → 2022-03-06 09:09 | Outpatient (CLI) | payer OTHER, SELFPAY ==
[2022-03-06 12:28] LABS: COVID19 -Nasal RAPID Negative (Negative)
== END ==
PROVIDERS: PCP Nurse Practitioner Family; Visit Provider Surgery
DX: Z01.812 Encounter for preprocedural laboratory examination (principal); Z20.822 Contact with and (suspected) exposure to COVID-19
CPT/HCPCS: 87635; C9803

== ENCOUNTER 2022-03-07 08:29 | Day surgery (SDC) | payer OTHER, SELFPAY ==
--- NOTE | 2022-03-07 | PATH_ITS ---
[facility] Accession Number: [id number] . 01 Material submitted: . rectum - RECTAL POLYP . 01 Diagnosis: Rectum, Polyp, Biopsy: Hyperplastic polyp. [facility] 03/12/2022 1336 Local . 01 Electronically signed: . Bhakti Ortiz MD, Pathologist NPI- [id number] . 01 Gross description: . RECTAL POLYP: Received in formalin is 1 fragment(s) of brennan, soft tissue measuring 0.3 x 0.2 x 0.2 cm submitted entirely in 1 cassette(s) /CPE 03/08/2022 0532 Local . 01 Pathologist provided ICD-10: K62.1 . 01 CPT . 821086 Specimen Comment: A courtesy copy of this report has been sent to [phone] Performed at: 01 [facility] [address] [place] [id number] MD Braeden Rutherford MD Phone: [phone]
[2022-03-07 08:39] VITALS: BP 114/77; PULSE 59; RESP 16; TEMP 36.4; O2SAT 98; BMI 29.0
--- NOTE | 2022-03-07 09:19 | PM.HP.1 ---
History of Present Illness History of Present Illness Date Patient Seen: 03/07/22 Time Patient Seen: 09:20 Chief complaint: SCREENING COLONOSCOPY Narrative: 52-year-old woman who is here for colon cancer screening. She has never had a colonoscopy before Patient History Medical History (Updated 03/07/22 @ 09:20 by Tony Rivas MD) Alcoholic liver disease Chronic back pain (2000) Elevated liver enzymes Encounter for routine gynecological examination (08/02/21) Encounter for wellness examination in adult (08/02/21) ETOH abuse Facet arthropathy, lumbar Fatty liver Hip pain, left Hot flashes due to menopause Hypertension Hyperthyroidism Malignant melanoma (05/2021) Nodule of skin of left foot (~11/2021) Scoliosis Unintentional weight loss (07/2021) Vaginal atrophy Surgical History Anesthesia History of breast augmentation (~01/08/12) History of breast augmentation (~01/07/17) Family & Social History Family History Father Accident Social History: household members significant other Tobacco & Substance use: Smoking Status Current some day smoker alcohol intake current alcohol intake frequency 0-2 drinks per day Substance Use Type does not use Meds Home Medications and Allergies Home Medications Medication Instructions Recorded Confirmed Type levothyroxine 25 mcg tablet 50 mcg PO QDAY #0 03/05/17 03/07/22 History (Synthroid) fish oil 1 tab PO DAILY 07/18/21 03/07/22 History vitamin e 1 tab PO DAILY 07/18/21 03/07/22 History cholecalciferol (vitamin D3) 25 100 mcg PO DAILY cap 08/02/21 03/07/22 History mcg (1,000 unit) capsule ezetimibe 10 mg tablet See Rx Instructions .ROUTE 01/07/22 03/07/22 Rx .COMPLEX #30 tab losartan 25 mg tablet See Rx Instructions .ROUTE 01/14/22 03/07/22 Rx .COMPLEX #90 tab sodium sul 1.479 gram-potas ch See Rx Instructions PO PER PKG DIR 02/21/22 Rx 0.188 gram-magnes sul 0.225 gram #24 tab tablet (Sutab) Allergies Allergy/AdvReac Type Severity Reaction Status Date / Time No Known Drug Allergies Allergy Verified 08/02/21 11:10 Exam Vital Signs (past 8 hours): - 03/07/22 08:39 Temperature 97.5 F L Pulse Rate 59 L Respiratory Rate 16 Blood Pressure 114/77 Pulse Oximetry 98 Oxygen Delivery Method Room Air Const General: comfortable Resp Effort & Inspection: normal respiratory effort GI Palpation: soft Assessment & Plan Assessment and plan (1) Colon cancer screening: Status: Acute Plan We reviewed the risks and benefits of colonoscopy for colon cancer screening and she would like to proceed. COVID-19 COVID-19 status: Negative Result date/Date tested (Pos, Neg/Pending): 03/06/22 Time Spent With Patient Critical Care time: I spent a total of [] minutes of critical care time on this patient's care today; this time is exclusive of procedural time.
[2022-03-07] MEDS: MIDAZOLAM 5 MG/5 ML VIAL IV (09:38)
[2022-03-07] MEDS: fentaNYL 250 MCG/5 ML INJ IV (09:38)
[2022-03-07 09:58] VITALS: BP 104/72; PULSE 52; RESP 14; TEMP 36.4; O2SAT 98
--- NOTE | 2022-03-07 10:02 | PM.OP.COLON ---
Operative Date/Time/Diagnoses Date of procedure: 03/07/22 Time of procedure: 10:02 Pre-op diagnosis: Colon cancer screening Post-op diagnosis: same Procedure & Clinicians Study performed: Colonoscopy Same procedure as scheduled: Yes Surgeon: Tony Rivas Procedure Notes Procedure in detail: Surgeon: Tony Rivas MD Procedure: The patient was brought to the endoscopy suite, placed in left lateral decubitus position. The patient was connected to monitoring devices. A time-out was performed. Sedation was administered. Once the patient was adequately sedated, a digital rectal exam was performed and was normal. The scope was then inserted and advanced to the cecum where the appendiceal orifice was identified and photographed. The scope was then slowly withdrawn over greater than 6 minutes. Mucosa was thoroughly inspected. There were no lesions noted. The scope was retroflexed in the rectum. There was a small 5 mm polyp just above the dentate line which was removed with cold Jumbo forceps. The scope was straightened and removed. The patient was awakened and brought to recovery. Versed: 5 mg Fentanyl: 150 mcg EBL: 5 mL Findings: Small polyp just above the dentate line Scope withdrawal time: 11 Sedation minutes: 25 Post-procedure Recommendations: Will call with biopsy results Disposition: PACU
[2022-03-07 10:03] VITALS: BP 107/70; PULSE 58; RESP 11; O2SAT 97
[2022-03-07 10:09] VITALS: BP 122/80; PULSE 59; RESP 14; O2SAT 97
[2022-03-07] MEDS: LACTATED RINGERS 1,000 ML 150 ML IV (10:13)
== END 2022-03-07 10:15 | disposition home or self-care (01) ==
PROVIDERS: Referring Provider Surgery; Visit Provider Surgery
PROC: 0DJD8ZZ Inspection of Lower Intestinal Tract, Via Natural or Artificial Opening Endoscopic (ICD-10-PCS; CPT 45378; principal; 2022-03-07 09:30)
DX: Z12.11 Encounter for screening for malignant neoplasm of colon (principal); F17.210 Nicotine dependence, cigarettes, uncomplicated; K62.1 Rectal polyp
CPT/HCPCS: 45380; 99152; 99153; J2250; J3010

== ENCOUNTER → 2022-04-09 15:28 | Outpatient (CLI) | payer OTHER, SELFPAY | PROVIDERS: Visit Provider Student in an Organized Health Care Education/Training Program | DX: N39.0 Urinary tract infection, site not specified (principal) | CPT/HCPCS: 87086 ==

== ENCOUNTER → 2022-05-08 12:24 | Outpatient (CLI) | payer OTHER, SELFPAY ==
[2022-05-08 13:53] LABS: Alanine Aminotransferase 47 IU/L (<35); Albumin 4.5 g/dL (3.5-5.0); Albumin Globulin Ratio 1.9 (1.0-2.8); Alkaline Phosphatase 77 U/L (38-126); Aspartate Aminotransferase 52 IU/L (14-36); Bilirubin Total 0.7 mg/dL (0.2-1.3); Bilirubin Unconjugated 0.7 mg/dL (0.0-1.1); Globulin 2.4 g/dL (1.7-4.1); HEMOLYSIS < 15 (0-50); Total Protein 6.9 g/dL (6.3-8.2)
== END ==
PROVIDERS: PCP Registered Nurse Diabetes Educator; Referring Provider Registered Nurse Diabetes Educator; Visit Provider Registered Nurse Diabetes Educator
DX: R74.8 Abnormal levels of other serum enzymes (principal)
CPT/HCPCS: 36415; 80076

== ENCOUNTER → 2022-06-22 12:44 | Outpatient (CLI) | payer OTHER, SELFPAY ==
--- NOTE | 2022-06-22 | DI.MG.S_ITS ---
BILATERAL DIGITAL SCREENING MAMMOGRAM 3D/2D WITH CAD: 06/22/2022 CLINICAL: Routine screening. Comparison is made to exams dated: 06/09/2021 mammogram - [facility], 05/25/2020 mammogram - [facility], and 05/24/2019 mammogram - [facility]. There are scattered areas of fibroglandular density in both breasts (category b / 25%-50% glandular tissue). Current study was also evaluated with a Computer Aided Detection (CAD) system. There are benign post operative findings in both breasts. There is a mole marker on the right breast. No significant masses, calcifications, or other findings are seen in either breast. There has been no significant interval change. IMPRESSION: BENIGN There is no mammographic evidence of malignancy. A 1 year screening mammogram is recommended. Based on the Tyrer Cuzick model (a risk assessment model) the patient's lifetime risk is 8.2% and her 10 year risk is 1.9%. According to the ACR, ACS, and NCCN guidelines, an annual breast MRI exam along with mammogram is recommended if the patient's lifetime risk is 20% or greater. This exam was interpreted at Station ID: [id number]. NOTE: For mammograms, a report in lay terms will be sent to the patient. Approximately 15% of breast malignancies will not be visualized mammographically. In the management of a palpable breast mass, a negative mammogram must not discourage biopsy of a clinically suspicious lesion. Electronically Signed By: Abhi evangelista/polly:06/25/2022 07:50:02 letter sent: Normal Exam ACR BI-RADS Category 2: Benign Finding(s) 3342F
== END ==
PROVIDERS: PCP Registered Nurse Diabetes Educator; Referring Provider Registered Nurse Diabetes Educator; Visit Provider Registered Nurse Diabetes Educator
DX: Z12.31 Encounter for screening mammogram for malignant neoplasm of breast (principal)
CPT/HCPCS: 77063; 77067

== ENCOUNTER → 2022-12-04 16:32 | Outpatient (CLI) | payer OTHER, SELFPAY ==
--- NOTE | 2022-12-04 16:37 | DI.RAD.S_ITS ---
PROCEDURE: XR HIP W PEL IF DONE [place] MIN 4V INDICATIONS: Left hip DJD TECHNIQUE: AP pelvis with lateral view(s) of the bilateral hip(s). COMPARISON: [facility], CR, XR HIP W PEL IF DONE LT 2V, 08/02/2021, 11:24. FINDINGS: Bones: No fractures or dislocations. Left worse than right bilateral hip joint osteoarthritic changes are seen with joint space narrowing, subchondral sclerosis and marginal osteophyte formation. No evidence of avascular necrosis of femoral head. Pelvic ring appears intact. No suspicious bony lesions. Soft tissues: The visualized bowel gas pattern is normal. No suspicious soft tissue calcifications. IMPRESSION: Left worse than right bilateral hip joint osteoarthritis. No fracture or dislocation. No evidence of avascular necrosis. Dictated by: Joshua Rasmussen M.D. on 12/05/2022 at 11:41 Approved by: Joshua Rasmussen M.D. on 12/05/2022 at 11:41
--- NOTE | 2022-12-04 16:37 | DI.RAD.S_ITS ---
PROCEDURE: XR LUMBAR SPINE MIN 4V INDICATIONS: Progressive axial low back pain TECHNIQUE: 5 views of the lumbar spine were acquired, including bilateral oblique views. COMPARISON: [facility], , XR LUMBAR SPINE 2-3V, 02/02/2021, 12:19. FINDINGS: Bones: 5 nonrib-bearing vertebrae are present. There is very mild leftward curvature of lumbar spine with apex at L4 level. Straightening of normal lumbar lordosis is also seen. Degenerative endplate changes, slight loss of disc height and bilateral facet arthrosis throughout lumbar spine is seen. No vertebral body compression fractures. No suspicious bony lesions. Soft tissues: Overlying bowel gas pattern is normal. No suspicious soft tissue calcifications. Oblique images: No pars defects. IMPRESSION: 1. Mild degenerative disc disease throughout lumbar spine. No acute compression fracture or spondylolisthesis. Very mild leftward scoliosis as above. 2. No gross pars defects. Dictated by: Joshua Rasmussen M.D. on 12/05/2022 at 11:42 Approved by: Joshua Rasmussen M.D. on 12/05/2022 at 11:43
== END ==
PROVIDERS: PCP Registered Nurse Diabetes Educator; Referring Provider Physical Medicine & Rehabilitation; Visit Provider Physical Medicine & Rehabilitation
DX: M16.0 Bilateral primary osteoarthritis of hip (principal); M47.816 Spondylosis without myelopathy or radiculopathy, lumbar region
CPT/HCPCS: 72110; 73522

== ENCOUNTER → 2024-06-02 15:43 | Outpatient (CLI) | payer OTHER, SELFPAY ==
--- NOTE | 2024-06-02 | DI.MRI.S_ITS ---
PROCEDURE: MR FOOT RT WO/W CON INDICATIONS: 2x SOFT TISSUE MASS TECHNIQUE: Multiphasic, multisequence MRI of the forefoot was performed, before and after intravenous contrast administration. COMPARISON: [facility], MR, MR FOREFOOT RIGHT WITH/WITHOUT CONTRAST, 12/27/2022, 13:06. FINDINGS: Image quality: Excellent. Bones and joints: Moderate degenerative changes of the 1st metatarsophalangeal joint, with associated mild subchondral cystic changes in the 1st metatarsal head. Small amount of effusion within the 1st metatarsal phalangeal joint. Mild subchondral cystic changes of the distal aspect of the medial cuneiform, favoring degenerative. No acute fracture or marrow contusion. Soft tissues: The Lisfranc ligament is intact. Mild 2nd intermetatarsal bursitis. There is a 1.1 cm T1 hypointense, partially T2 hyperintense lesion without enhancement , slightly medial, and plantar to the 2nd metatarsal head. This lesion appears cystic on prior exam, and is grossly unchanged in size in comparison to prior exam. The medial aspect of the plantar plate at the 2nd metatarsophalangeal joint is diminutive, likely representing partial-thickness tear The muscles are normal in signal. No significant subcutaneous edema. The visualized plantar fascia is unremarkable. No suspicious enhancing lesion. No Yates's neuroma. The flexor and the extensor tendons are unremarkable. IMPRESSION: 1. 1.1 cm nonenhancing, partially T2 hyperintense lesion medial, and plantar to the 2nd metatarsal head, with significantly decreased cystic component in comparison to prior exam. Overall, this may represent an evolving ganglion cyst with decreased cystic component and increased fibrosis, vs pericapsular fibrosis in the setting of plantar plate tear. 2. Partial thickness tear of the medial aspect of the plantar plate at the 2nd metatarsophalangeal joint. 3. Moderate degenerative change of the 1st metatarsophalangeal joint. Dictated by: Katty Mitchell M.D. on 06/03/2024 at 12:01 Approved by: Katty Mitchell M.D. on 06/03/2024 at 12:29
== END ==
LOC: MRI 15:44
PROVIDERS: PCP Nurse Practitioner; Referring Provider Podiatrist Foot & Ankle Surgery; Visit Provider Podiatrist Foot & Ankle Surgery
DX: M67.471 Ganglion, right ankle and foot (principal); M72.2 Plantar fascial fibromatosis; M71.571 Other bursitis, not elsewhere classified, right ankle and foot; S93.524A Sprain of metatarsophalangeal joint of right lesser toe(s), initial encounter
CPT/HCPCS: 73720; A9579

== ENCOUNTER 2024-06-29 06:00 | Day surgery (SDC) | payer OTHER, SELFPAY ==
[2024-06-29] VITALS (7 sets, daily range): BP systolic 109–148; BP diastolic 66–94; PULSE 50–73; RESP 12–18; TEMP 36.2–36.7; O2SAT 92–99; BMI 34.2
--- NOTE | 2024-06-29 | PATH_ITS ---
[facility] Accession Number: [id number] No. of containers..01 Tissue . 01 Material submitted: . foot - RIGHT FOOT SOFT TISSUE MASS . 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 Negative for malignancy. MRV 07/06/2024 1611 Local . 01 Comment: As part of ongoing training and quality manager, this case is also reviewed by Dr. Mela Toledo, who agrees with the interpretation. . 01 Electronically signed: . Cuong Nicole MD, Pathologist NPI- [id number] . 01 Gross description: . Received in formalin with two patient identifiers and right foot, are four brennan soft tissue fragments measuring from 0.6 cm to 0.5 cm to 0.2 cm to 1.2 x 0.8 x 0.4 cm. The largest fragment is inked blue, serially sectioned and submitted entirely in A1. The second largest fragment is inked entirely blue, trisected, and submitted entirely in A2. The smallest two fragments are differentially inked, both bisected, and submitted entirely in A3. ([id number]) /MRV 06/30/2024 1331 Local . 01 Microscopic: . Microscopic examination reveals variably cellular proliferation of spindled fibroblasts and myofibroblasts without significant cytologic atypia; morphologically findings compatible with plantar fibromatosis. A limited panel of immunostains is performed to support the morphologic impression, with the following results: . Smooth muscle actin: Cells of interest positive. Beta-catenin: Cells of interest show cytoplasmic and rare nuclear positivity. CD34: Cells of interest negative. (This result argues against nodular fasciitis, among other possibilities.) S100: Cells of interest negative (this result argues against neural differentiation). JOHNNIE: Cells of interest negative (negative result argues against perineurioma). . In summary, the morphology along with immunohistochemistry supports the diagnosis. . * This test was developed and its performance characteristics determined by [facility]. It has not been cleared or approved by the U.S. Food and Drug Administration. The FDA has determined that such clearance or approval is not necessary. This test is used for clinical purposes. It should not be regarded as investigational or for research. . 01 Pathologist provided ICD-10: M72.2 . 01 CPT . 344813, P82583, N27920 Specimen Comment: A courtesy copy of this report has been sent to [facility] Performed at: [address] [id number] MD Braeden Rutherford MD Phone: [phone]
--- NOTE | 2024-06-29 06:39 | P.HP_ITS ---
History of Present Illness History of Present Illness Chief complaint: Right foot Narrative: 54 year old female here for pain to right foot for 1.5 years that did not respond to conservative management. MRI shows plantar plate tear with fibrosis to the second metatarsophalangeal joint, She denies any specific incident of spraining her toe but has been busy with work and climbing activities. Nina reports worsening pain with ambulation and wants to proceed with surgery now. Patient denies n/v/f/c/sob/cp. [facility] Medical History Alcoholic liver disease Chronic back pain (2000) Degenerative joint disease (DJD) of hip Depression Dyslipidemia Elevated liver enzymes Encounter for routine gynecological examination (08/02/21) Encounter for wellness examination in adult (08/02/21) ETOH abuse Facet arthropathy, lumbar Fatty liver Hip pain, left Hot flashes due to menopause Hypertension Hyperthyroidism Malignant melanoma (05/2021) Nodule of skin of left foot (~11/2021) Scoliosis Unintentional weight loss (07/2021) Vaginal atrophy Surgical History Anesthesia History of breast augmentation (~01/08/12) History of breast augmentation (~01/07/17) Family History Father Accident Social History household members: significant other Smoking Status: Current some day smoker Tobacco: How many years used: 1 quit status: considering quitting second hand exposure: No alcohol intake: current substance use type: does not use Meds Home Medications and Allergies Home Medications Medication Instructions Recorded Confirmed Type fish oil 1 tab PO DAILY 07/18/21 05/01/23 History vitamin e 1 tab PO DAILY 07/18/21 05/01/23 History cholecalciferol (vitamin D3) 25 100 mcg PO DAILY 08/02/21 05/01/23 History mcg (1,000 unit) capsule ezetimibe 10 mg tablet See Rx Instructions .Route 04/23/22 06/29/24 Rx .COMPLEX #90 tabs levothyroxine 50 mcg tablet 50 mcg PO DAILY #90 tabs 04/23/22 06/29/24 Rx losartan 25 mg tablet See Rx Instructions .Route 04/23/22 06/29/24 Rx .COMPLEX #90 tabs varicella-zoster glycoE [id number] 0.5 ml IM ONCE #1 ea 04/23/22 05/01/23 Rx adj(PF) 50 mcg/0.5 mL IM susp, kit (Shingrix (PF)) Allergies Allergy/AdvReac Type Severity Reaction Status Date / Time No Known Drug Allergies Allergy Verified 06/29/24 06:33 Exam Extrem Other: Right foot: Moderate pain on palpation to plantar MTP joint 2. Full strength against resistance of FDL and EDL. Negative Edwige's sign. Negative lateral squeeze test. Ambivalent Dora test. Discomfort on palpation to small soft tissue mass at the distal central band of plantar fascia. Assessment & Plan Assessment & Plan narrative: 1. Right foot plantar plate and flexor intrinsic injury. 2. Right foot joint contracture. 3. Right foot soft tissue mass. Patient seen and evaluated. Surgical plan: right foot plantar plate repair, metatarsal shortening osteotomy, and soft tissue mass removal. Risks and benefits of the procedure discussed with all questions answered to patient's satisfaction. Reviewed potential complications that may include but not limited to the following: DVT, failure to resolve all symptoms, infection, nerve injury, bleeding, recurrence, or wound. Reviewed surgical technique and general aftercare protocols. All questions answered to patient's satisfaction with no guarantees made. Patient verbalized understanding and agreed with surgical plan. RTC for post-op. Time-Based Coding :: [TOTAL MINUTES] spent with patient and on the chart (including review of chart, obtaining history, exam, reviewing outside data, placing orders, documenting exam and treatment plan, and counseling patient) on [DATE].
--- NOTE | 2024-06-29 06:39 | PM.PREOP ---
Pre-operative Note Interval Note History & Physical reviewed/Exam performed by Physician: Yes Changes to H&P: No
[2024-06-29] MEDS: LACTATED RINGERS 1,000 ML 42 ML IV (07:06)
[2024-06-29] MEDS: ACETAMINOPHEN 325 MG TABLET 975 MG PO (07:08)
--- NOTE | 2024-06-29 07:20 | SUR.PREOP ---
Right popliteal block initiated. Monitoring initiated and maintained throughout procedure. Oxygen at 2LNC. Medications given per Dr Costa instructions. 0749 time out done. 0755 injection time. 0756 block complete. Patient remained stable throughout procedure. No adverse reactions noted.
[2024-06-29] MEDS: CEFAZOLIN 2 GM/100 ML PREMIX 100 ML IV (08:00)
--- NOTE | 2024-06-29 08:20 | SUR.OPER ---
Supine on padded OR bed, head on pillow, arms secured on padded arm boards at <90 degrees abduction, legs uncrossed, operative leg resting on triangle wedge. safety belt at thigh, tape over blanket over lower legs.
[2024-06-29] MEDS: LIDOCAINE 1% 20 ML INJ (08:28)
[2024-06-29] MEDS: SODIUM CHLORIDE IRRIG SOLUTION 3,000 ML, GENTAMICIN 240 MG IRR (09:07)
[2024-06-29] MEDS: BUPIVACAINE 0.25% (PF) VIAL 30 ML INJ (10:33)
[2024-06-29] MEDS: LIDOCAINE 1% W/EPI 20 ML INJ (10:34)
--- NOTE | 2024-07-01 21:33 | P.OP_ITS ---
Operative Date/Time/Diagnoses Date of procedure: 06/29/24 Pre-op diagnosis: 1. Right foot second ray flexor capsular tear 2. Right foot second ray joint contracture 3. Right foot plantar fibroma Post-op diagnosis: same Procedure & Clinicians Procedure: 1. Right foot second ray plantar plate repair 2. Right foot second metatarsal shortening osteotomy 3. Right foot plantar fibroma removal Same procedure as scheduled: Yes Indications: Right foot chronic pain Surgeon: Ramon Gallego Click Yes if Unassisted: Yes Anesthesia Type: General Operative Notes Findings: Consistent with diagnosis Closure Type: primary Specimen(s): other (Soft tissue mass) Estimated Blood Loss (mL): 25 Blood products transfused: none Tourniquet time (min): 120 Procedure in detail: Patient was seen, identified, and transferred onto operating table in supine position. Regional block was performed in holding area. General anesthesia was administered in operating room. An 18 inch tourniquet was applied over well- padded area on right ankle. Right foot was then prepped and draped in usual sterile fashion followed by official timeout with surgical team all in agreement. Attention was directed to right forefoot second ray. A linear incision was made using a #15 scalpel, and dissection was carried out in layers from skin down to the bone and joint with care to protect tendon and neurovascular structures. Second metatarsophalangeal joint was freed with a McGlamery elevator. A sagittal saw blade was used to make a transverse cut in parallel to weight bearing surface for shortening of respective metatarsal and reflecting the joint. Further dissection was carried out to expose the plantar capsular ligament. Partial-thickness tear was identified at the medial aspect, along with notable thickening of synovial tissue that was sharply excised. Following manufacture instruction for Arthrex Scorpion, the plantar plate was grasped for passing of suture tape. Decision was then made to make a bone tunnel at the center of second toe proximal phalanx, and a suture passer was used to retrieve the suture tape. Attention was then redirected proximally to fixate the second metatarsal head using snap-off screws after proper alignment was verified on fluoroscopy. With adequate tensioning and positioning, a tenodesis screw was inserted to secure the repair and augment the plantar plate repair. Surgical site was irrigated and closed in layers from deep to superficial using 3-0 and 4-0 vicryls and 3-0 and 4-0 nylons. Attention was then directed to plantar medial forefoot. A curvilinear incision was made using a #15 scalpel, and a curved metzebaum scissor was used to gradually snip away all soft tissue adhesion to free up the mass. Care was taken to protect neurovascular structures. It was found to be hard, nodular, and at the level of plantar fascia. Excised tissue sample was sent to pathology for gross evaluation. Procedure site was irrigate and closed using 3-0 nylon. All incision site was washed and dried. Sterile bulky surgical dressing was applied, and surgical limb was placed in posterior splint. Patient tolerated procedure without complication and was transferred out of the operating room with stable vitals. Post-operative Condition: stable Disposition: same day surgery Plan for aftercare: NWB to surgical limb. Elevate above heart. Ice behind knee 15 minutes/hour when awake. Keep dressing clean, dry, and intact.
== END 2024-06-29 12:04 | disposition home or self-care (01) ==
PROVIDERS: PCP Nurse Practitioner; Referring Provider Podiatrist Foot & Ankle Surgery; Visit Provider Podiatrist Foot & Ankle Surgery
PROC: (CPT 28200; principal; 2024-06-29 07:45)
DX: S96.011A Strain of muscle and tendon of long flexor muscle of toe at ankle and foot level, right foot, initial encounter (principal); M24.574 Contracture, right foot; M72.2 Plantar fascial fibromatosis; G89.18 Other acute postprocedural pain
CPT/HCPCS: 28200; 28308; 28060; 64450; J0690; J1100; J1885; J2250; J2405; J2704; J2919; J3010

== ENCOUNTER 2024-12-09 07:53 | Outpatient (CLI) | payer BC, SELFPAY ==
[2024-12-09] VITALS (9 sets, daily range): BP systolic 120–156; BP diastolic 72–98; PULSE 61–76; RESP 14–24; TEMP 36.6; O2SAT 94–100
--- NOTE | 2024-12-09 07:54 | DI.RAD.S_ITS ---
PROCEDURE: PAIN L/S FACET INJ/BLK 1ST AINSLEY INDICATIONS: Bilateral L4-L5 and S1 medial branch blocks LA COMPARISON: None. FINDINGS/IMPRESSION: Fluoroscopic spot filming was performed to verify placement of spinal needles at the right L4, L5 and S1 level(s), as labeled on the films. Appropriate location(s) of the needle tip(s) was confirmed by injection of iodinated contrast. Approved by: Bella Price M.D.,Ph.D. on 12/09/2024 at 21:41
[2024-12-09] MEDS: MIDAZOLAM 2 MG/2 ML VIAL IV ×2 (08:56→09:06)
[2024-12-09] MEDS: BUPIVACAINE 0.5% (PF) 10 ML VIAL 5 ML INJ (08:59)
[2024-12-09] MEDS: iopamidoL 15 ML VIAL 3 ML INJ (09:00)
[2024-12-09] MEDS: LIDOCAINE 1% 20 ML 5 ML INJ (09:00)
--- NOTE | 2024-12-09 09:17 | PM.PROC.IR.1 ---
Date/Time/Diagnoses Date of procedure: 12/09/24 Time of procedure: 09:18 Pre-procedure diagnosis: 1. FACET ARTHROPATHY Post-procedure diagnosis: same Procedure Notes Procedure: 1. BILATERAL- L4, L5 and S1 DIAGNOSTIC MB BLOCKS with LA Anesthetic Indications: Jose is referred by EDIL Coates for treatment of Bilateral Axial LBP. Physician: Kale Barnes Total Fluoroscopy time (seconds): 12 Total sedation minutes: 18 Complications: none Procedure in detail & Post-procedure care: DESCRIPTION OF PROCEDURE Fluoroscopically guided, contrast-controlled bilateral L4, L5 and S1 medial branch blocks with 0.5cc of 0.5% Marcaine. Following review of allergy and review of potential side effects and complications, including, but not necessarily limited to, infection, allergic reaction, local tissue breakdown, nerve injury, paralysis, stroke and possible , the patient indicated that the patient understood and agreed to proceed. An informed consent document was signed by the patient, witnessed by a nurse, and placed in the patient's chart. After review of previous anaesthesic history and IV conscious sedation the patient was deemed safe to proceed with today's procedure with IV conscious sedation as ASA class II designation. Safety time-out was performed to confirm patient ID, procedure to be performed and site of procedure. IV sedation was accomplished with a combination of 4mg of Versed was administered by the RN after DO order, titrated to patient comfort during the course of the procedure while the patient remained responsive to all verbal commands In the prone position, following sterile prep and drape of the lumbar region, the right L4, L5 and S1 anatomical location of the medial branch of the dorsal ramus was identified fluoroscopically. Subsequently an anesthetic skin wheal using 1% lidocaine solution was initiated at each of the anatomical spots. Subsequently then a 22-gauge 3.5-inch spinal needle was atraumatically introduced and advanced under fluoroscopic guidance at each of the corresponding sites at the right L4, L5 and S1 MB. After negative aspiration, 0.2cc of Isovue 200 was injected, confirming placement without vascular or intrathecal uptake. Subsequently then 0.5cc of 0.5% Marcaine solution was injected at each of the corresponding sites at the right L4, L5 and S1 medial branch locations. The identical procedure was replicated on the left. The patient tolerated the procedure well without signs or symptoms of complications prior to transfer to the recovery area continued monitoring without incident. Post-procedure, the patient was monitored initiating provocative activities to measure the amount of relief from block of the facetogenic pain. The patient reported a VAS of 7 prior to the procedure and a post-procedure VAS of 1. It has been a pleasure to assist in the diagnostic and therapeutic care of your patient. POST OP INSTRUCTIONS The patient was provided with a Pain Log to complete over the next several hours and subsequent days prior to the patient's follow up with the ordering physician. If the patient has assistant property manager relief to the solution applied, then they may be a candidate for medial branch rhizotomy. The patient is aware, was provided, once again, with a Pain Log and will follow up with the referring physician for review and clinical correlation
== END 2024-12-09 09:37 | disposition home or self-care (01) ==
PROVIDERS: PCP Nurse Practitioner; Referring Provider Physical Medicine & Rehabilitation; Visit Provider Physical Medicine & Rehabilitation
DX: M47.816 Spondylosis without myelopathy or radiculopathy, lumbar region (principal); M47.817 Spondylosis without myelopathy or radiculopathy, lumbosacral region
CPT/HCPCS: 64493; 64494; 99152; J2250

== ENCOUNTER → 2025-02-18 07:52 | Outpatient (CLI) | payer BC, SELFPAY ==
[2025-02-18 09:49] LABS: Hematocrit 41.6 % (36-46); Hemoglobin 14.8 g/dL (12.0-16.0); Mean Corpuscular HGB Conc 35.7 % (30-36); Mean Corpuscular Hemoglobin 34.5 PG (26-34); Mean Corpuscular Volume 96.6 fL (80-100); Platelet Count 210 X10^3/uL (150-400); Red Blood Cell Count 4.31 X10^6/uL (4.0-5.2); Red Cell Distribution Width 12.2 % (11.6-14.8); White Blood Cell Count 6.2 X10^3/uL (4.5-11.0)
[2025-02-18 10:36] LABS: Alanine Aminotransferase 198 IU/L (<35); Albumin 4.5 g/dL (3.5-5.0); Albumin Globulin Ratio 1.8 (1.0-2.8); Alkaline Phosphatase 78 U/L (38-126); Aspartate Aminotransferase 216 IU/L (14-36); BUN Creatinine Ratio 14.3 (6-22); Blood Urea Nitrogen 11 mg/dL (7-17); Calcium 9.7 mg/dL (8.4-10.2); Carbon Dioxide 25 mmol/L (22-32); Chloride 104 mmol/L (98-107); Cholesterol 255 mg/dL (140-199); Estimated Glomerular Filt Rate > 60 mL/min (>60); Globulin 2.5 g/dL (1.7-4.1); Glucose 85 mg/dL (70-99); HDL Cholesterol 78 mg/dL (40-60); HEMOLYSIS < 15 (0-50); LDL Cholesterol Calculated 158 mg/dL (<100); Potassium 4.7 mmol/L (3.4-5.1); Sodium 140 mmol/L (137-145); Triglycerides 93 mg/dL (35-150)
[2025-02-18 11:03] LABS: TSH w/ Reflex to FT4 2.62 uIU/mL (0.47-4.68)
== END ==
PROVIDERS: PCP Registered Nurse Diabetes Educator; Referring Provider Registered Nurse Diabetes Educator; Visit Provider Registered Nurse Diabetes Educator
DX: E78.2 Mixed hyperlipidemia (principal); E03.9 Hypothyroidism, unspecified; I10 Essential (primary) hypertension
CPT/HCPCS: 36415; 80053; 80061; 84443; 85027

== ENCOUNTER 2025-03-10 14:32 | Outpatient (CLI) | payer BC, SELFPAY ==
[2025-03-10] VITALS (11 sets, daily range): BP systolic 118–132; BP diastolic 71–93; PULSE 64–74; RESP 14–18; TEMP 36.8; O2SAT 94–100
[2025-03-10] MEDS: MIDAZOLAM 2 MG/2 ML VIAL IV (15:48)
[2025-03-10] MEDS: LIDOCAINE 2% INJ MDV 20ML 5 ML INJ (15:53)
[2025-03-10] MEDS: iopamidoL 15 ML VIAL 3 ML INJ (15:53)
[2025-03-10] MEDS: LIDOCAINE 1% 20 ML 5 ML INJ (15:53)
[2025-03-10] MEDS: MIDAZOLAM 2 MG/2 ML VIAL 1 MG IV ×2 (15:53→16:01)
--- NOTE | 2025-03-10 16:11 | P.PCN_ITS ---
Date/Time/Diagnoses Date of procedure: 03/10/25 Time of procedure: 16:11 Pre-procedure diagnosis: 1. FACET ARTHROPATHY Post-procedure diagnosis: same Procedure Notes Procedure: 1. BILATERAL- L4, L5 and S1 DIAGNOSTIC MB BLOCKS with SA Anesthetic Indications: Jose is referred by EDIL Sage for treatment of Bilateral Axial LBP. Physician: Kale Barnes Total Fluoroscopy time (seconds): 11 Total sedation minutes: 17 Complications: none Procedure in detail & Post-procedure care: DESCRIPTION OF PROCEDURE Fluoroscopically guided, contrast-controlled bilateral L4, L5 and S1 medial branch blocks with 0.5cc of 2% Lidocaine. Following review of allergy and review of potential side effects and complications, including, but not necessarily limited to, infection, allergic reaction, local tissue breakdown, nerve injury, paralysis, stroke and possible , the patient indicated that the patient understood and agreed to proceed. An informed consent document was signed by the patient, witnessed by a nurse, and placed in the patient's chart. After review of previous anaesthesic history and IV conscious sedation the patient was deemed safe to proceed with today's procedure with IV conscious sedation as ASA class II designation. Safety time-out was performed to confirm patient ID, procedure to be performed and site of procedure. IV sedation was accomplished with a combination of 4mg of Versed was administered by the RN after DO order, titrated to patient comfort during the course of the procedure while the patient remained responsive to all verbal commands In the prone position, following sterile prep and drape of the lumbar region, the right L4, L5 and S1 anatomical location of the medial branch of the dorsal ramus was identified fluoroscopically. Subsequently an anesthetic skin wheal using 1% lidocaine solution was initiated at each of the anatomical spots. Subsequently then a 22-gauge 3.5-inch spinal needle was atraumatically introduced and advanced under fluoroscopic guidance at each of the corresponding sites at the right L4, L5 and S1 MB. After negative aspiration, 0.2cc of Isovue 200 was injected, confirming placement without vascular or intrathecal uptake. Subsequently then 0.5cc of 2% Lidocaine solution was injected at each of the corresponding sites at the right L4, L5 and S1 medial branch locations. The identical procedure was replicated on the left. The patient tolerated the procedure well without signs or symptoms of complications prior to transfer to the recovery area continued monitoring without incident. Post-procedure, the patient was monitored initiating provocative activities to measure the amount of relief from block of the facetogenic pain. The patient reported a VAS of 7 prior to the procedure and a post-procedure VAS of 1. It has been a pleasure to assist in the diagnostic and therapeutic care of your patient. POST OP INSTRUCTIONS The patient was provided with a Pain Log to complete over the next several hours and subsequent days prior to the patient's follow up with the ordering physician. If the patient has body trimmer upholsterer relief to the solution applied, then they may be a candidate for medial branch rhizotomy. The patient is aware, was provided, once again, with a Pain Log and will follow up with the referring physician for review and clinical correlation
== END 2025-03-10 16:31 | disposition home or self-care (01) ==
PROVIDERS: PCP Registered Nurse Diabetes Educator; Referring Provider Physical Medicine & Rehabilitation; Visit Provider Physical Medicine & Rehabilitation
DX: M47.816 Spondylosis without myelopathy or radiculopathy, lumbar region (principal)
CPT/HCPCS: 64493; 64494; 99152; J2250

== ENCOUNTER → 2025-04-08 10:12 | Outpatient (CLI) | payer BC, SELFPAY ==
[2025-04-08 11:20] LABS: INR 1.1 (0.9-1.3); Prothrombin Time 12.7 SECONDS (9.4-12.5)
== END ==
PROVIDERS: PCP Registered Nurse Diabetes Educator; Referring Provider Registered Nurse Diabetes Educator; Visit Provider Registered Nurse Diabetes Educator
DX: K70.9 Alcoholic liver disease, unspecified (principal); K76.0 Fatty (change of) liver, not elsewhere classified
CPT/HCPCS: 82172; 82247; 82465; 82947; 82977; 83010; 83883; 84450; 84460; 84478; 85610

== ENCOUNTER → 2025-05-18 15:15 | Outpatient (CLI) | payer BC, SELFPAY | LOC: CAR 05-24 11:31 | PROVIDERS: PCP Registered Nurse Diabetes Educator; Referring Provider Registered Nurse Diabetes Educator; Visit Provider Registered Nurse Diabetes Educator | DX: R00.2 Palpitations (principal); R06.09 Other forms of dyspnea | CPT/HCPCS: 93246 ==

== ENCOUNTER → 2025-07-23 09:02 | Outpatient (CLI) | payer BC, SELFPAY ==
--- NOTE | 2025-07-23 09:03 | DI.MG.S_ITS ---
MM screening mammo BI: 07/23/2025. BI-RADS: 1 CLINICAL: 55-year old female for bilateral screening mammogram. Tyrer-Cuzick lifetime risk of 8.2%. No personal or first-degree family history of breast cancer. PRIOR EXAMS 06/10/2024, 06/09/2023, 06/22/2022, 06/09/2021, MAMMOGRAPHY TECHNIQUE: 2D and 3D (tomosynthesis) digital mammographic views obtained, with additional images as needed for full coverage. Current study was also evaluated with a Computer Aided Detection (CAD) system. DENSITY B. There are scattered areas of fibroglandular density. MAMMOGRAPHY FINDINGS Bilateral: No suspicious mass, asymmetry, microcalcification, or other abnormality seen. IMPRESSION: * No evidence of malignancy. RECOMMENDATIONS Bilateral * Annual screening mammography. OVERALL ASSESSMENT CATEGORY BI-RADS-1: Negative. The [employer] recommends annual screening mammography beginning at age 40 for women with average risk of breast cancer. ELECTRONICALLY SIGNED: Abhi Diana M.D. on 07/23/2025 at 09:44:18 PM PT Interpreting Station ID: [id number]
== END ==
PROVIDERS: PCP Registered Nurse Diabetes Educator; Referring Provider Registered Nurse Diabetes Educator; Visit Provider Registered Nurse Diabetes Educator
DX: Z12.31 Encounter for screening mammogram for malignant neoplasm of breast (principal)
CPT/HCPCS: 77063; 77067

== ENCOUNTER 2025-09-22 07:34 | Outpatient (CLI) | payer BC, SELFPAY ==
[2025-09-22] VITALS (13 sets, daily range): BP systolic 104–139; BP diastolic 58–90; PULSE 59–76; RESP 15–20; TEMP 36.8; O2SAT 94–99
[2025-09-22] MEDS: MIDAZOLAM 2 MG/2 ML VIAL IV (08:23)
[2025-09-22] MEDS: LIDOCAINE 1% 20 ML 5 ML INJ (08:30)
[2025-09-22] MEDS: fentaNYL 100 MCG/2 ML INJ 50 MCG IV (08:34)
[2025-09-22] MEDS: MIDAZOLAM 2 MG/2 ML VIAL 1 MG IV ×2 (08:39→08:50)
--- NOTE | 2025-09-22 09:19 | P.PCN_ITS ---
Date/Time/Diagnoses Date of procedure: 09/22/25 Time of procedure: 09:19 Pre-procedure diagnosis: 1. RECALCITRANT FACET ARTHROPATHY Post-procedure diagnosis: same Procedure Notes Procedure: 1. BILATERAL L4 AND L5 MEDIAL BRANCH RADIOFREQUENCY NEUROTOMY AND S1 DORSAL RAMUS BRANCH RADIOFREQUENCY NEUROTOMY Indications: Jose is referred by EDIL Sage for treatment of facet arthropathy. Physician: Kale Barnes Total Fluoroscopy time (seconds): 20 Total sedation minutes: 42 Complications: none Procedure in detail & Post-procedure care: DESCRIPTION OF PROCEDURE Bilateral L4 and L5 medial branch radiofrequency neurotomy and bilateral S1 dorsal ramus radiofrequency neurotomy under fluoroscopy with conscious sedation. The patient is well known to this clinic having undergone previous facet injections with good but temporary relief. The patient has experienced appropriate, concordant relief with previous facet and median branch blocks but the patient's pain has been recalcitrant to further conservative measures. Therefore, based upon the patient's relief and persistent symptoms, the patient is considered an appropriate candidate for facet rhizotomy. All of the patient's questions regarding the risks versus benefits of the procedure, including, but not limited to, bleeding, infection, temporary as well as lasting nerve injury, paralysis, stroke, and , as well treatment alternatives were answered to satisfaction. After obtaining informed consent, denial of pertinent drug allergies, as well as being made aware of the potential risks of bleeding, infection, spinal cord trauma, paralysis, temporary and permanent nerve damage, seizure, stroke, and possible , the patient was brought to the fluoroscopy suite and positioned prone on the fluoroscopy table. The lumbar region was prepped in usual sterile fashion and covered with a fenestrated drape in the usual sterile fashion. Appropriate monitors applied including pulse oximeter, pulse, and blood pressure for regular monitoring throughout the procedure. After review of previous anaesthesic history and IV conscious sedation the patient was deemed safe to proceed with today's procedure with IV conscious sedation as ASA class II designation. Safety time-out was performed to confirm patient ID, procedure to be performed and site of procedure. IV sedation was accomplished with a combination of 4mg of Versed and 50mcg of Fentanyl administered by the RN after DO order, titrated to patient comfort during the course of the procedure while the patient remained responsive to all verbal commands. After local infiltration using 1% lidocaine, under fluoroscopic guidance, a 10- cm RF insulated needle with a 10-mm active tip was positioned parallel to the junction of the right sacral ala and the superior articulating process where the S1 dorsal ramus resides. Needle placement was confirmed with motor stimulation of .5v on the right which produced local stimulation without radicular component. The stimulation was then increased to 2v with, once again, only local multifidus stimulation without radicular component. The needle was then removed and the identical procedure was performed along the length of the right L5 medial branch with motor stimulation at .7v on the right. The identical procedure was once again performed along the length of the right L4 medial branch with motor stimulation of .5v on the right. The medial branches were then anesthetised with 0.5% Marcaine. This was then followed by two discreet lesions performed at 80 degrees Celsius for 90 seconds each. The identical procedure was repeated on the left. The patient tolerated the procedure well without signs or symptoms of complications prior to transfer to the recovery area continued monitoring without incident. The patient was then transferred to the recovery area where they were observed for an appropriate period of time after the injection. The patient reported a VAS score of 9 prior to the procedure and a post-procedure VAS of 1. POST OP INSTRUCTIONS The patient was provided a Pain Log to continue to record the patient's response to the target-specific procedure prior to the patient's follow-up visit with the referring physician. Additionally, specific post-injection care instructions and a contact number to our office were provided if concerns arise regarding possible complications associated with the procedure are suspected.
== END 2025-09-22 09:35 | disposition home or self-care (01) ==
LOC: RAD 07:35
PROVIDERS: PCP Registered Nurse Diabetes Educator; Referring Provider Physical Medicine & Rehabilitation; Visit Provider Physical Medicine & Rehabilitation
DX: M47.816 Spondylosis without myelopathy or radiculopathy, lumbar region (principal); M47.817 Spondylosis without myelopathy or radiculopathy, lumbosacral region
CPT/HCPCS: 64635; 64636; 99152; 99153; J2250; J3010